=== PATIENT | female | born 1935 | race Caucasian/White ===

== ENCOUNTER 2020-10-25 18:34 | Inpatient (IN) | payer MEDICARE ==
[~2020-10-25] VITALS: Ht 165.1 cm; Wt 83.1 kg
--- NOTE | 2020-10-25 19:12 | NUR ---
The patients son called, he states he does not want anything done to the patient and does not want her admitted to the facility. He asks that she be sent back to her previous level of care.
[2020-10-25 20:25] LABS: BASOPHILS # (AUTO) 0.1 K/uL (0.0-8.0); BASOPHILS % (AUTO) 1.1 % (0.0-2.0); EOSINOPHILS # (AUTO) 0.4 K/uL (0.0-0.7); EOSINOPHILS % (AUTO) 3.3 % (0.0-7.0); HEMATOCRIT 36.9 % (31.2-41.9); HEMOGLOBIN 12.4 g/dL (10.9-14.3); LYMPHOCYTES # (AUTO) 3.5 K/uL (20.0-40.0); LYMPHOCYTES % (AUTO) 31.1 % (20.5-51.5); MEAN CORPUSCULAR HEMOGLOBIN 30.7 uug (24.7-32.8); MEAN CORPUSCULAR HGB CONC 34 g/dL (32.3-35.6); MEAN CORPUSCULAR VOLUME 91.4 fL (75.5-95.3); MONOCYTES # (AUTO) 1.1 K/uL (2.0-10.0); MONOCYTES % (AUTO) 9.6 % (0.0-11.0); NEUTROPHILS # (AUTO) 6.2 K/uL (1.8-8.9); NEUTROPHILS % (AUTO) 54.9 % (38.5-71.5); PLATELET COUNT (AUTO) 246 K/uL (179-408); RED BLOOD CELL COUNT(AUTO) 4.04 MIL/uL (3.63-4.92); WHITE BLOOD COUNT (AUTO) 11.2 K/uL (3.8-11.8)
[2020-10-25 20:30] LABS: CREATININE 1.1 mg/dL (0.6-1.3); POTASSIUM 3.8 mmol/L (3.5-5.1)
[2020-10-25 20:49] LABS: BILIRUBIN,TOTAL 0.5 mg/dL (0.2-1.0)
[2020-10-25] MEDS ORDERED: ASPIRIN 325 MG TABLET PO ONE (21:15)
[2020-10-25] MEDS ORDERED: FUROSEMIDE 40 MG/4 ML VIAL IV ONE (21:30)
[2020-10-25] MEDS ORDERED: ACETAMINOPHEN 325 MG TABLET PO PRN (21:30)
[2020-10-25] MEDS ORDERED: APIXABAN 2.5 MG TABLET PO SCH (21:30)
[2020-10-25] MEDS ORDERED: HALOPERIDOL LACTATE 5 MG/1 ML VIAL IM ONE (21:30)
[2020-10-25] MEDS ORDERED: HYDROCODONE/APAP 5-325MG TABLET PO PRN (21:30)
[2020-10-25] MEDS ORDERED: Z GUARD REMEDY PASTE 57 GM TUBE TOP PRN (21:30)
[2020-10-25] MEDS ORDERED: MAGNESIUM HYDROXIDE 30 ML LIQUID UDC PO PRN (21:30)
[2020-10-25] MEDS ORDERED: ONDANSETRON 4 MG/2 ML VIAL IV PRN (21:30)
[2020-10-25] MEDS ORDERED: DILTIAZEM HCL 25 MG IV IV ONE (21:30)
[2020-10-25] MEDS ORDERED: HALOPERIDOL LACTATE 5 MG/1 ML VIAL ONE (21:34)
--- NOTE | 2020-10-25 21:41 | NUR ---
Patient refuses IV placement at this time. Refused ASA and Dilt PO.
[2020-10-25] MEDS ORDERED: TRAZODONE 50 MG TABLET PO SCH (23:15)
[2020-10-26] MEDS ORDERED: LORAZEPAM 2 MG/1 ML VIAL ONE (00:26)
[2020-10-26] MEDS ORDERED: LORAZEPAM 2 MG/1 ML VIAL IV ONE (00:30)
--- NOTE | 2020-10-26 01:08 | NUR ---
Report to Maame CELESTIN on Telemetry
[2020-10-26 01:25] VITALS: BP 139/98
--- NOTE | 2020-10-26 01:30 | NUR ---
Patient brought to tele unit from Er via [facility] by staff nurse.D/X of CHF.Patient asleep .On 02 at 4LPM via SD.No s/s of distress noted.IV on right hand patent and intact.No s/s of infiltration.Lasix IVP given.Tolerated well.No a/r noted.Skin no breakdown.Safey measures in place.Will continue to monitor.VSS
[2020-10-26] MEDS ORDERED: FUROSEMIDE 40 MG/4 ML VIAL IV ONE (02:15)
[2020-10-26 04:00] VITALS: BP 128/82
[2020-10-26 07:18] LABS: BASOPHILS # (AUTO) 0.1 K/uL (0.0-8.0); BASOPHILS % (AUTO) 1.3 % (0.0-2.0); EOSINOPHILS # (AUTO) 0.4 K/uL (0.0-0.7); EOSINOPHILS % (AUTO) 5.4 % (0.0-7.0); HEMATOCRIT 34.3 % (31.2-41.9); HEMOGLOBIN 11.7 g/dL (10.9-14.3); LYMPHOCYTES # (AUTO) 2.6 K/uL (20.0-40.0); LYMPHOCYTES % (AUTO) 34.8 % (20.5-51.5); MEAN CORPUSCULAR HEMOGLOBIN 31.3 uug (24.7-32.8); MEAN CORPUSCULAR HGB CONC 34 g/dL (32.3-35.6); MEAN CORPUSCULAR VOLUME 91.9 fL (75.5-95.3); MONOCYTES % (AUTO) 13.5 % (0.0-11.0); NEUTROPHILS # (AUTO) 3.4 K/uL (1.8-8.9); PLATELET COUNT (AUTO) 207 K/uL (179-408); RED BLOOD CELL COUNT(AUTO) 3.74 MIL/uL (3.63-4.92); WHITE BLOOD COUNT (AUTO) 7.6 K/uL (3.8-11.8)
[2020-10-26 07:26] LABS: CREATININE 1.1 mg/dL (0.6-1.3); MAGNESIUM 2.2 mg/dL (1.8-2.4); PHOSPHOROUS 3.9 mg/dL (2.5-4.9); POTASSIUM 3.3 mmol/L (3.5-5.1)
--- NOTE | 2020-10-26 07:30 | NUR ---
received patient AOx3, patient on bed with O2 inhalation via nasal cannula at 2lpm, patient with heplock on R hand, patient verbalizes that she wanted to go home, patient appears to be weak at this time, patient denies SOB, patient aware of the reason of her hospitalization, spoke with patients daughter and son, on phone , address patients need
--- NOTE | 2020-10-26 08:15 | NUR ---
2D ECHO was done, patient tolerated procedure, patient went to her nap
[2020-10-26] MEDS ORDERED: METOPROLOL TARTRATE 50 MG TABLET PO SCH ×2 (09:00→12:53)
[2020-10-26] MEDS ORDERED: NIFEdipine XL 60 MG TABSR PO SCH (09:00)
[2020-10-26] MEDS ORDERED: LOSARTAN POTASSIUM 50 MG TABLET PO SCH (09:00)
[2020-10-26] MEDS: ESCITALOPRAM OXALATE 10 MG TABLET PO SCH (09:21)
[2020-10-26] MEDS: DABIGATRAN ETEXILATE MESYLATE 75 MG CAPSULE PO SCH ×2 (09:23→20:52)
[2020-10-26] MEDS ORDERED: POTASSIUM CHLORIDE 20 MEQ TAB.PRT.SR PO ONE (10:00)
[2020-10-26 11:29] VITALS: BP 129/89
[2020-10-26] MEDS ORDERED: IBUP-2314 PO (12:55)
[2020-10-26] MEDS ORDERED: ESCI5TAB PO (12:56)
[2020-10-26] MEDS ORDERED: ATOR20TA PO (12:57)
[2020-10-26] MEDS ORDERED: LOSA25TA27 PO (12:57)
[2020-10-26] MEDS ORDERED: METO50TA16 PO (12:58)
[2020-10-26] MEDS ORDERED: NIFE-34 PO (12:59)
[2020-10-26] MEDS ORDERED: DABI150C PO (13:00)
[2020-10-26] MEDS ORDERED: TROS20TA3 PO (13:03)
[2020-10-26] MEDS ORDERED: TRAZ-182 PO ×2 (13:03)
[2020-10-26] MEDS ORDERED: LOSA100T31 PO (13:07)
--- NOTE | 2020-10-26 15:10 | NUR ---
Started IVF NS 0.9% as ordered Addendum: 10/26/20 at 1733 by SUSANNAH LOCKWOOD RN wrong entry
[2020-10-26 16:10] VITALS: BP 124/76
[2020-10-26] MEDS ORDERED: FUROSEMIDE 20 MG/2 ML VIAL IV ONE (17:00)
--- NOTE | 2020-10-26 17:01 | NUR ---
patient verbalizes of pain , pain meds given
[2020-10-26] MEDS: METOPROLOL TARTRATE 50 MG TABLET PO SCH (17:15)
--- NOTE | 2020-10-26 20:00 | NUR ---
Received patient in bed. AAOx3. No s/s of acute distress noted. Pt on 2L NC denies SOB. active directory specialist on, denies CP. Pt verbalized that they want to go home. Safety measures in place.
[2020-10-26 20:29] VITALS: BP 103/69
[2020-10-26] MEDS: TRAZODONE 50 MG TABLET PO SCH (20:52)
[2020-10-27 00:39] VITALS: BP 97/56
[2020-10-27 05:26] VITALS: BP 103/57
[2020-10-27 07:47] LABS: CARBON DIOXIDE 30 mmol/L (21-32); CHLORIDE 103 mmol/L (98-107); CREATININE 1.3 mg/dL (0.6-1.3); GLUCOSE 91 mg/dL (74-106); UREA NITROGEN, BLOOD 20 mg/dL (7-18)
[2020-10-27] MEDS: DABIGATRAN ETEXILATE MESYLATE 75 MG CAPSULE PO SCH ×2 (09:00→21:00)
[2020-10-27] MEDS: ESCITALOPRAM OXALATE 10 MG TABLET PO SCH (09:00)
[2020-10-27] MEDS: LOSARTAN POTASSIUM 50 MG TABLET PO SCH (09:00)
[2020-10-27] MEDS: FUROSEMIDE 20 MG TABLET PO SCH (09:00)
[2020-10-27] MEDS: METOPROLOL TARTRATE 50 MG TABLET PO SCH ×2 (09:00→17:00)
--- NOTE | 2020-10-27 09:00 | NUR ---
Patient in bed asleep arousable to name and touch. AOx3 refused to have breakfast and medications. Repeatedly asked to take medications and got angry and still refused. educated on risks and benefits.
[2020-10-27 12:00] VITALS: BP 113/74
--- NOTE | 2020-10-27 14:00 | NUR ---
informed by Gemma Ochoa NP that O2 has been turned off and monitor oxygen saturation, no SOB or distress noted.
[2020-10-27 16:00] VITALS: BP 133/70
--- NOTE | 2020-10-27 20:00 | NUR ---
Received patient lying in bed, awake and alert. No s/s of acute distress noted. Pt on RA denies SOB. second vp hr assessment in place. HOB elevated. BLE elevated. Right Hand IV patent and intact. Safety measures in place and will continue to monitor.
[2020-10-27] MEDS: TRAZODONE 50 MG TABLET PO SCH (21:00)
[2020-10-27 21:09] VITALS: BP 149/74
--- NOTE | 2020-10-27 21:19 | NUR ---
Pt refusing medications stating "Just let me , im ready to leave this earth". Provided education of risk and benefits. Will continue to monitor.
[2020-10-28] VITALS: BP 135/73
[2020-10-28 05:53] VITALS: BP 145/87
--- NOTE | 2020-10-28 06:35 | NUR ---
Patient in bed. Awake and alert. No s/s of acute distress noted. Pt denies SOB and CP. Pt refusing care and for linen to be clean, multiple attempts. Provided education of risks of not changing soiled linen. Pt continued to refuse stating "leaving me alone". building superintendent in place, Afib tachy. Safety measures and bed alarm on. Will endorse to oncoming staff.
--- NOTE | 2020-10-28 08:15 | NUR ---
PATIENT IS ALERT AND VERBALLY RESPONSIVE BUT IS FORGETFUL A LOT REQUIRING REDIRECTION WAS RECEIVED WITH TELE MONITORING BUT HAS BEEN DISCONTINUED AT THIS TIME.ON ROOM AIR WITH NO SOB AT THIS TIME CALL LIGHTS AND PERSONAL BELONGINGS ARE WITHIN EASY REACH NOT IN DISTRESS AT THIS TIME.
[2020-10-28 08:35] LABS: BASOPHILS # (AUTO) 0.1 K/uL (0.0-8.0); BASOPHILS % (AUTO) 1.1 % (0.0-2.0); EOSINOPHILS # (AUTO) 0.4 K/uL (0.0-0.7); EOSINOPHILS % (AUTO) 4.2 % (0.0-7.0); HEMATOCRIT 36.6 % (31.2-41.9); HEMOGLOBIN 12.3 g/dL (10.9-14.3); LYMPHOCYTES # (AUTO) 2.8 K/uL (20.0-40.0); LYMPHOCYTES % (AUTO) 32.3 % (20.5-51.5); MEAN CORPUSCULAR HGB CONC 34 g/dL (32.3-35.6); MONOCYTES % (AUTO) 11.8 % (0.0-11.0); NEUTROPHILS # (AUTO) 4.4 K/uL (1.8-8.9); NEUTROPHILS % (AUTO) 50.6 % (38.5-71.5); PLATELET COUNT (AUTO) 232 K/uL (179-408); RED BLOOD CELL COUNT(AUTO) 3.98 MIL/uL (3.63-4.92); WHITE BLOOD COUNT (AUTO) 8.8 K/uL (3.8-11.8)
[2020-10-28] MEDS: ESCITALOPRAM OXALATE 10 MG TABLET PO SCH (08:52)
[2020-10-28] MEDS: FUROSEMIDE 20 MG TABLET PO SCH (08:52)
[2020-10-28] MEDS: LOSARTAN POTASSIUM 50 MG TABLET PO SCH (08:53)
[2020-10-28] MEDS: METOPROLOL TARTRATE 50 MG TABLET PO SCH (08:53)
[2020-10-28 08:54] LABS: CREATININE 1.2 mg/dL (0.6-1.3); MAGNESIUM 2.3 mg/dL (1.8-2.4); PHOSPHOROUS 2.9 mg/dL (2.5-4.9)
[2020-10-28] MEDS: DABIGATRAN ETEXILATE MESYLATE 75 MG CAPSULE PO SCH (08:58)
--- NOTE | 2020-10-28 09:49 | NUR ---
ALL DUE MEDICATIONS TAKEN INCLUDING HER PRADAXA AT THIS TIME NO S/S OF BLEEDING WAS SEEN BY THE PHYSICAL THERAPIST WILL CHECK PARTICIPATION.
[2020-10-28] MEDS ORDERED: METO50TA16 PO (11:41)
[2020-10-28] MEDS ORDERED: LOSA50TA3 PO (11:41)
[2020-10-28] MEDS ORDERED: FURO20TA4 PO (11:41)
[2020-10-28 12:00] VITALS: BP 142/89
--- NOTE | 2020-10-28 13:30 | NUR ---
PER INES PERSONNEL COUNSELOR PATIENT CAN BE DISCHARGED TO [facility] TODAY PATIENTS SON AWARE AND SHE STATED THAT SHE WILL MAKE ARRANGEMENTS WITH [facility] RECOVERY ENGINEER TIME IS 1700
[2020-10-28 16:00] VITALS: BP 158/89
--- NOTE | 2020-10-28 16:20 | NUR ---
PATIENT DISCHARGED PICKED UP BY [facility] IN STABLE CONDITION WITH DISCHARGE INSTRUCTIONS,PRESCRIPTIONS AND PERSONAL BELONGINGS
== END 2020-10-28 16:20 | DRG 280 ==
LOC: ER 18:34 → TELE3 10-26 00:57 → MEDSURG3 10-28 09:35
PROVIDERS: ADMIT Nurse Practitioner Acute Care; ATTEND Nurse Practitioner Acute Care
DX: I11.0 Hypertensive heart disease with heart failure (principal); N17.0 Acute kidney failure with tubular necrosis; I21.A1 Myocardial infarction type 2; I48.20 Chronic atrial fibrillation, unspecified; E87.1 Hypo-osmolality and hyponatremia; I50.33 Acute on chronic diastolic (congestive) heart failure; E78.5 Hyperlipidemia, unspecified; E86.1 Hypovolemia; F03.90 Unspecified dementia, unspecified severity, without behavioral disturbance, psychotic disturbance, mood disturbance, and anxiety; I13.0 Hypertensive heart and chronic kidney disease with heart failure and stage 1 through stage 4 chronic kidney disease, or unspecified chronic kidney disease; N18.9 Chronic kidney disease, unspecified; Z20.828 Contact with and (suspected) exposure to other viral communicable diseases
CPT/HCPCS: 36415; 70030-TC; 71045; 83605; 83615; 83735; 84100; 85025; 85730; 86140; 87040; 93005; 93307; A4663; C1758; G0378; J1630; J1940; J2060; J3490

== ENCOUNTER 2020-12-05 17:31 | Emergency (ER) | payer MEDICARE ==
[~2020-12-05] VITALS: Ht 167.6 cm; Wt 62.6 kg
[~2020-12-05 17:31] MED LIST: DABI150C PO; ESCI5TAB PO; FURO20TA4 PO; IBUP-2314 PO; LOSA50TA3 PO; METO50TA16 PO; TRAZ-182 PO; TROS20TA3 PO
--- NOTE | 2020-12-05 17:35 | NUR ---
PT IS IN BED 1B. DR FREDERICK EVALUATED THE PT.
--- NOTE | 2020-12-05 17:44 | NUR ---
PT WENT CT DEPARTMENT.
[2020-12-05] MEDS ORDERED: LOSA100T31 PO (17:51)
[2020-12-05] MEDS ORDERED: NIFE-34 PO (17:51)
[2020-12-05] MEDS ORDERED: METO50TA16 PO (17:51)
[2020-12-05] MEDS ORDERED: ATOR20TA PO (17:51)
[2020-12-05] MEDS ORDERED: TRAZ-257 PO (17:51)
[2020-12-05 18:00] LABS: BASOPHILS # (AUTO) 0.1 K/uL (0.0-8.0); EOSINOPHILS # (AUTO) 0.4 K/uL (0.0-0.7); EOSINOPHILS % (AUTO) 3.6 % (0.0-7.0); HEMATOCRIT 40.4 % (31.2-41.9); HEMOGLOBIN 12.9 g/dL (10.9-14.3); LYMPHOCYTES # (AUTO) 2.4 K/uL (20.0-40.0); LYMPHOCYTES % (AUTO) 23.1 % (20.5-51.5); MEAN CORPUSCULAR HGB CONC 32 g/dL (32.3-35.6); MEAN CORPUSCULAR VOLUME 90.7 fL (75.5-95.3); MONOCYTES # (AUTO) 1.1 K/uL (2.0-10.0); MONOCYTES % (AUTO) 10.8 % (0.0-11.0); NEUTROPHILS # (AUTO) 6.3 K/uL (1.8-8.9); NEUTROPHILS % (AUTO) 61.5 % (38.5-71.5); PLATELET COUNT (AUTO) 327 K/uL (179-408); RED BLOOD CELL COUNT(AUTO) 4.45 MIL/uL (3.63-4.92); WHITE BLOOD COUNT (AUTO) 10.2 K/uL (3.8-11.8)
[2020-12-05 18:03] LABS: CREATININE 1.1 mg/dL (0.6-1.3); POTASSIUM 3.9 mmol/L (3.5-5.1)
--- NOTE | 2020-12-05 18:03 | NUR ---
PT CAME BACK FROM CT DEPARTMENT. DR DE JESUS DISCUSS PT's CT RESULT WITH DR RUIZ. PT IS RESTING IN BED 1B. CONTINUE TO MONITOR THE PT.
[2020-12-05 18:08] LABS: BILIRUBIN,DIRECT 0.2 mg/dL (0.0-0.2); BILIRUBIN,TOTAL 0.6 mg/dL (0.2-1.0); TOTAL PROTEIN, SERUM 7.5 g/dL (6.4-8.2)
[2020-12-05] MEDS ORDERED: DILTIAZEM HCL 25 MG IV IV ONE (18:45)
[2020-12-05] MEDS ORDERED: DILTIAZEM HCL 25 MG IV ONE (18:56)
[2020-12-05] MEDS ORDERED: HYDROCODONE/APAP 5-325MG TABLET PO PRN (19:45)
[2020-12-05] MEDS ORDERED: Z GUARD REMEDY PASTE 57 GM TUBE TOP PRN (19:45)
[2020-12-05] MEDS ORDERED: ACETAMINOPHEN 325 MG TABLET PO PRN (19:45)
[2020-12-05] MEDS ORDERED: MAGNESIUM HYDROXIDE 30 ML LIQUID UDC PO PRN (19:45)
[2020-12-05] MEDS ORDERED: ONDANSETRON 4 MG/2 ML VIAL IV PRN (19:45)
--- NOTE | 2020-12-05 20:22 | NUR ---
Ambrocio (son) called stating wishes to take mother MD JEANNINE made aware
--- NOTE | 2020-12-05 21:21 | NUR ---
Family dada Frank took patient against medical advise at this time, wheelchair used to transfer patient to private car
--- NOTE | 2020-12-05 21:22 | NUR ---
Patient does not wish to proceed with medical care recommended by Dr. Rivera. Patient given information related to possible complications, up to and including , which could occur as a result of leaving the hospital at this time. Patient verbalizes understanding of risks involved due to leaving against medical advice. Patient family member has signed AMA form.
[2020-12-05 21:23] VITALS: BP 150/85
[2020-12-06] MEDS ORDERED: PANTOPRAZOLE SODIUM 40 MG TABLET.DR PO SCH (07:00)
== END 2020-12-05 21:20 | disposition left against medical advice (07) ==
LOC: ER 17:33
DX: I48.91 Unspecified atrial fibrillation (principal); R55 Syncope and collapse; S09.90XA Unspecified injury of head, initial encounter; W18.30XA Fall on same level, unspecified, initial encounter; Y92.099 Unspecified place in other non-institutional residence as the place of occurrence of the external cause; Y99.8 Other external cause status; Z79.02 Long term (current) use of antithrombotics/antiplatelets; F03.90 Unspecified dementia, unspecified severity, without behavioral disturbance, psychotic disturbance, mood disturbance, and anxiety; F32.9 Major depressive disorder, single episode, unspecified; I11.0 Hypertensive heart disease with heart failure; I50.9 Heart failure, unspecified; M85.861 Other specified disorders of bone density and structure, right lower leg; E78.5 Hyperlipidemia, unspecified; Z20.822 Contact with and (suspected) exposure to COVID-19; I67.2 Cerebral atherosclerosis; G31.9 Degenerative disease of nervous system, unspecified
CPT/HCPCS: 36415; 70450; 71045; 72125; 73502; 73590; 80048; 80076; 82962; 83605; 83880; 84484 ×2; 85025; 85730; 87040 ×2; 87426; 93005; 96374; 99291; J3490; 70030-TC; A4663